=== PATIENT | female | born 1985 | race Caucasian/White ===

== ENCOUNTER 2021-03-17 20:46 | Emergency (ER) | payer OTHER ==
[2021-03-17 22:13] LABS: BASOPHIL 0.3 % (0-2); EOSINOPHIL 2.1 % (0-5); HCT 35.9 % (37.0-47.0); HGB 11.4 g/dl (12.5-16.0); MCH 26.5 pg (25.0-31.0); MCHC 31.8 g/dL (32.0-36.0); MCV 83.3 fL (78.0-100.0); MONOCYTE 5.7 % (0-12); MPV 9.8 fL (6.0-9.5); NEUTROPHIL 65.4 % (41-80); NRBC 0; PLT 315 K/uL (150-400); RBC 4.31 M/uL (4.20-5.40); WBC 12.8 K/uL (4.0-10.5)
[2021-03-17 22:26] LABS: BILIRUBIN - TOTAL 0.2 mg/dL (0.2-1.0); CREATININE 0.79 mg/dL (0.51-0.95); GLOBULIN (CALCULATION) 4.5 g/dL; POTASSIUM 3.7 mmol/L (3.5-5.1); TOTAL PROTEIN 7.5 g/dL (6.4-8.2)
[2021-03-17 22:26] LABS: BILIRUBIN NEGATIVE (NEGATIVE); BLOOD NEGATIVE Ery/uL (NEGATIVE); COLOR YELLOW (YELLOW); GLUCOSE (U) NORMAL (NORMAL); LEUKOCYTES TRACE Leu/uL (NEGATIVE); NITRITE NEGATIVE (NEGATIVE); PROTEIN NEGATIVE (NEGATIVE); SPECIFIC GRAVITY >=1.030 (1.001-1.030); UROBILINOGEN 0.2 mg/dL (0.2-1.0)
[2021-03-17 22:30] LABS: CLARITY SLIGHTLY HAZY (CLEAR)
[2021-03-17 22:32] LABS: LACTIC ACID 0.9 mmol/L (0.4-1.9)
[2021-03-17 22:35] LABS: BACTERIA 1+
[2021-03-18] MEDS ORDERED: NORCO 5-325 TA1 EACH PO (03:26)
[2021-03-18] MEDS ORDERED: BENTYL10 MG PO (03:26)
[2021-03-18] MEDS ORDERED: ONDANSETRON ODT4 MG SL (03:26)
== END 2021-03-18 03:55 | disposition home or self-care (01) ==
LOC: FER 20:46
PROVIDERS: Emergency Medicine Emergency Medical Services
DX: R10.31 Right lower quadrant pain (principal); R10.32 Left lower quadrant pain; E11.9 Type 2 diabetes mellitus without complications; I10 Essential (primary) hypertension; E66.01 Morbid (severe) obesity due to excess calories; Z91.013 Allergy to seafood; Z79.899 Other long term (current) drug therapy; Z79.84 Long term (current) use of oral hypoglycemic drugs
CPT/HCPCS: 36415; 80053; 81001; 82150; 83605; 83690; 85025; J2270; J2405; J7030; Q9967

== ENCOUNTER 2021-11-20 20:44 | Day surgery (SDCO) | payer OTHER ==
[~2021-11-20] VITALS: Ht 170.2 cm; Wt 184.6 kg
[~2021-11-20 20:44] MED LIST: BENTYL10 MG PO; NORCO 5-325 TA1 EACH PO; ONDANSETRON ODT4 MG SL
[2021-11-20 21:23] LABS: BASOPHIL 0.4 % (0-2); EOSINOPHIL 2.2 % (0-5); HCT 36.6 % (37.0-47.0); HGB 11.5 g/dl (12.5-16.0); MCH 26.3 pg (25.0-31.0); MCHC 31.4 g/dL (32.0-36.0); MCV 83.8 fL (78.0-100.0); MONOCYTE 4.6 % (0-12); MPV 9.7 fL (6.0-9.5); NEUTROPHIL 66.2 % (41-80); NRBC 0; PLT 325 K/uL (150-400); RBC 4.37 M/uL (4.20-5.40); RDW 15.7 % (11.5-14.0); WBC 13.7 K/uL (4.0-10.5)
[2021-11-20 22:08] LABS: ALBUMIN 2.8 g/dL (3.4-5.0); BILIRUBIN - TOTAL 0.2 mg/dL (0.2-1.0); BUN/CREAT RATIO (CALC) 17.1 RATIO; CORONAVIRUS 2019 SARS-COV-2 NEGATIVE (NEGATIVE); CREATININE 0.76 mg/dL (0.51-0.95); GLOBULIN (CALCULATION) 4.2 g/dL; INFLUENZA A NAA NEGATIVE (NEGATIVE); POTASSIUM 3.6 mmol/L (3.5-5.1)
--- NOTE | 2021-11-21 01:31 | NUR ---
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 PER PT. PLEASE ADDRESS APPROPRIATELY. THANK YOU.
[2021-11-21] MEDS ORDERED: ASPIRIN EC81 M1 PO (03:21)
[2021-11-21] MEDS ORDERED: FOLIC ACID1 MG PO (03:22)
[2021-11-21] MEDS ORDERED: ATARAX25 MG PO (03:27)
[2021-11-21] MEDS ORDERED: PRINIVIL20 MG PO (03:30)
[2021-11-21] MEDS ORDERED: METFORMIN HCL500 MG PO (03:31)
[2021-11-21] MEDS ORDERED: SINGULAIR10 MG PO (03:32)
[2021-11-21] MEDS ORDERED: ALDACTONE25 MG PO (03:33)
[2021-11-21] MEDS ORDERED: TRAZODONE HCL150 MG PO (03:34)
[2021-11-21] MEDS ORDERED: TOPROL XL 50 MG50 MG PO (03:34)
[2021-11-21] MEDS ORDERED: VIIBRYD40 MG PO (03:36)
[2021-11-21] MEDS ORDERED: VRAYLAR4.5 MG PO (03:36)
[2021-11-21] MEDS ORDERED: XYZAL5 MG PO (03:37)
[2021-11-21 06:59] LABS: HCT 36.4 % (37.0-47.0); HGB 11.6 g/dl (12.5-16.0); MCH 26.7 pg (25.0-31.0); MCHC 31.9 g/dL (32.0-36.0); MCV 83.7 fL (78.0-100.0); MPV 10.3 fL (6.0-9.5); RBC 4.35 M/uL (4.20-5.40); RDW 15.5 % (11.5-14.0); WBC 13.9 K/uL (4.0-10.5)
[2021-11-21 07:26] LABS: ALBUMIN 2.9 g/dL (3.4-5.0); BILIRUBIN - TOTAL 0.1 mg/dL (0.2-1.0); BUN/CREAT RATIO (CALC) 15.9 RATIO; CREATININE 0.69 mg/dL (0.51-0.95); GLOBULIN (CALCULATION) 4.3 g/dL; MAGNESIUM 1.7 mg/dL (1.8-2.4); PHOSPHORUS 2.4 mg/dL (2.6-4.7); POTASSIUM 3.9 mmol/L (3.5-5.1); TOTAL PROTEIN 7.2 g/dL (6.4-8.2)
--- NOTE | 2021-11-21 10:23 | NUR ---
0722 PANIC LAB VALUES FOR LACTIC 2.[address] HENDRICKS NOTIFED NO ORDERS AT THIS TIME.
--- NOTE | 2021-11-21 12:34 | NUR ---
PER DR. HENDRICKS PT IS OBS APPROPRIATE.
--- NOTE | 2021-11-21 17:48 | NUR ---
1745 O2 SAT BEFORE WASLKING 90% ON RA, HR 108. AMBULATED DOWN TO THE HALLWAY TO THE NURSE STATION AND BACK TO THE ROOM. O2 SAT 90% RA AND HR AT THE HIGHEST 127, COMPLIANTS OF SOME INCREASED SHORTNESS OF AIR. RETURNED BACK TO THE ROOM AND RESTED AND HEART RATE DECREASED TO 108, NO INCREASED SHORTNESS OF AIR AND ROM AIR O2 SAT WAS 90-91%. WILL CONTINUE TO MONITOR FOR CHANGES AND DR. HENDRICKS WAS NOTIFIED.
[2021-11-22 06:50] LABS: BASOPHIL 0.1 % (0-2); EOSINOPHIL 0 % (0-5); HCT 36.1 % (37.0-47.0); HGB 11.2 g/dl (12.5-16.0); MCH 26.1 pg (25.0-31.0); MCV 84.1 fL (78.0-100.0); MONOCYTE 4.5 % (0-12); MPV 10.1 fL (6.0-9.5); NRBC 0; PLT 344 K/uL (150-400); RBC 4.29 M/uL (4.20-5.40); WBC 21.4 K/uL (4.0-10.5)
[2021-11-22 07:12] LABS: ALBUMIN 2.8 g/dL (3.4-5.0); ALKALINE PHOSHATASE 79 U/L (46-116); ALT 29 U/L (14-59); AST <5 U/L (15-37); BILIRUBIN - TOTAL 0.2 mg/dL (0.2-1.0); BUN 10 mg/dL (7-18); BUN/CREAT RATIO (CALC) 15.9 RATIO; CHLORIDE 103 mmol/L (98-107); CO2 (BICARBONATE) 24 mmol/L (21-32); CREATININE 0.63 mg/dL (0.51-0.95); GLOBULIN (CALCULATION) 4.3 g/dL; GLUCOSE 155 mg/dL (74-106); POTASSIUM 4.5 mmol/L (3.5-5.1); TOTAL PROTEIN 7.1 g/dL (6.4-8.2)
[2021-11-23 06:32] LABS: BASOPHIL 0.2 % (0-2); EOSINOPHIL 0.2 % (0-5); HCT 35.6 % (37.0-47.0); HGB 11.1 g/dl (12.5-16.0); LYMPHOCYTE 27.3 % (15-48); MCH 26.9 pg (25.0-31.0); MCHC 31.2 g/dL (32.0-36.0); MCV 86.2 fL (78.0-100.0); MONOCYTE 5.3 % (0-12); MPV 9.8 fL (6.0-9.5); NEUTROPHIL 65.8 % (41-80); NRBC 0; PLT 308 K/uL (150-400); RBC 4.13 M/uL (4.20-5.40); RDW 16.3 % (11.5-14.0); WBC 16.7 K/uL (4.0-10.5)
--- NOTE | 2021-11-23 10:48 | NUR ---
11/23 Ms. White identifies as male and prefers to be referred to as Mr. White or [place]. Mr. White lives at home with his spouse. He works at [employer]. The spouse works as a plumber's assistant. Mr. White reports to be having some financial difficulties due to loss of work hours. - Mr. White reports to have a dx of bipolar disease, depression and anxiety. He has a PCP, Slade Bailey, and counseling through [facility], On-line. - Mr. White was provided with a list of financial community resources.
[2021-11-23] MEDS ORDERED: PREDNISONE 20MG20 MG PO (10:53)
[2021-11-23] MEDS ORDERED: TOPROL XL 25MG25 MG PO (10:53)
== END 2021-11-23 12:19 | disposition home or self-care (01) ==
LOC: FER 20:44 → FMS 23:13
PROVIDERS: Allergy & Immunology Allergy; Internal Medicine; Nurse Practitioner; ADMIT Internal Medicine
DX: J44.1 Chronic obstructive pulmonary disease with (acute) exacerbation (principal); I10 Essential (primary) hypertension; F32.A Depression, unspecified; E11.9 Type 2 diabetes mellitus without complications; E66.2 Morbid (severe) obesity with alveolar hypoventilation; Z79.82 Long term (current) use of aspirin; Z79.84 Long term (current) use of oral hypoglycemic drugs; Z91.013 Allergy to seafood; Z90.49 Acquired absence of other specified parts of digestive tract; Z20.822 Contact with and (suspected) exposure to COVID-19
CPT/HCPCS: 36415; 71045; 71275; 80053; 83605; 83735; 83880; 84100; 84145; 84484; 85025; 93005; 94010; 94640; 94762; G0378; J0456; J0696; J1100; J1650; J2060; J2405; J2930; J7050; J7512; Q9967; U0002

== ENCOUNTER 2021-12-20 14:23 | Emergency (ER) | payer OTHER ==
[~2021-12-20 14:23] MED LIST changes: +ALDACTONE25 MG PO; +ASPIRIN EC81 M1 PO; +ATARAX25 MG PO; +FOLIC ACID1 MG PO; +METFORMIN HCL500 MG PO; +PREDNISONE 20MG20 MG PO; +PRINIVIL20 MG PO; +SINGULAIR10 MG PO; +TOPROL XL 25MG25 MG PO; +TOPROL XL 50 MG50 MG PO; +TRAZODONE HCL150 MG PO; +VIIBRYD40 MG PO; +VRAYLAR4.5 MG PO; +XYZAL5 MG PO
[2021-12-20 15:58] LABS: BASOPHIL 0.2 % (0-2); EOSINOPHIL 2.1 % (0-5); HCT 38.1 % (37.0-47.0); HGB 12.1 g/dl (12.5-16.0); LYMPHOCYTE 27.7 % (15-48); MCH 26.9 pg (25.0-31.0); MCHC 31.8 g/dL (32.0-36.0); MCV 84.7 fL (78.0-100.0); MONOCYTE 5.5 % (0-12); MPV 9.9 fL (6.0-9.5); NEUTROPHIL 63.7 % (41-80); NRBC 0; PLT 355 K/uL (150-400); RDW 15.5 % (11.5-14.0); WBC 13.6 K/uL (4.0-10.5)
[2021-12-20 16:12] LABS: BILIRUBIN - TOTAL 0.1 mg/dL (0.2-1.0); BUN/CREAT RATIO (CALC) 13.7 RATIO; CREATININE 0.73 mg/dL (0.51-0.95); GLOBULIN (CALCULATION) 4.5 g/dL; TOTAL PROTEIN 7.5 g/dL (6.4-8.2)
[2021-12-20 17:58] LABS: BILIRUBIN NEGATIVE (NEGATIVE); BLOOD NEGATIVE Ery/uL (NEGATIVE); CLARITY CLEAR (CLEAR); COLOR YELLOW (YELLOW); GLUCOSE (U) NORMAL (NORMAL); LEUKOCYTES NEGATIVE Leu/uL (NEGATIVE); NITRITE NEGATIVE (NEGATIVE); PROTEIN NEGATIVE (NEGATIVE); UROBILINOGEN 0.2 mg/dL (0.2-1.0)
[2021-12-20] MEDS ORDERED: ONDANSETRON ODT4 MG PO (18:29)
== END 2021-12-20 18:47 | disposition home or self-care (01) ==
LOC: FER 14:23
PROVIDERS: Physician Assistant
DX: A08.4 Viral intestinal infection, unspecified (principal); E11.9 Type 2 diabetes mellitus without complications; I10 Essential (primary) hypertension; Z91.013 Allergy to seafood; Z79.84 Long term (current) use of oral hypoglycemic drugs; Z79.899 Other long term (current) drug therapy
CPT/HCPCS: 36415; 80053; 81003; 83690; 85025

== ENCOUNTER 2022-02-07 22:22 | Emergency (ER) | payer OTHER ==
[~2022-02-07 22:22] MED LIST changes: +ONDANSETRON ODT4 MG PO
[2022-02-07 23:32] LABS: BASOPHIL 0.3 % (0-2); EOSINOPHIL 2.6 % (0-5); HCT 38.6 % (37.0-47.0); HGB 12.1 g/dl (12.5-16.0); LYMPHOCYTE 29.2 % (15-48); MCH 26.5 pg (25.0-31.0); MCHC 31.3 g/dL (32.0-36.0); MCV 84.5 fL (78.0-100.0); MONOCYTE 5.2 % (0-12); MPV 10.2 fL (6.0-9.5); NEUTROPHIL 62.3 % (41-80); NRBC 0; PLT 300 K/uL (150-400); RBC 4.57 M/uL (4.20-5.40); RDW 14.6 % (11.5-14.0); WBC 12.7 K/uL (4.0-10.5)
[2022-02-07 23:37] LABS: BILIRUBIN NEGATIVE (NEGATIVE); BLOOD 2+ Ery/uL (NEGATIVE); CLARITY CLEAR (CLEAR); COLOR YELLOW (YELLOW); GLUCOSE (U) NORMAL (NORMAL); LEUKOCYTES NEGATIVE Leu/uL (NEGATIVE); NITRITE POSITIVE (NEGATIVE); PROTEIN NEGATIVE (NEGATIVE); SPECIFIC GRAVITY >=1.030 (1.001-1.030); UROBILINOGEN 0.2 mg/dL (0.2-1.0)
[2022-02-07 23:44] LABS: BACTERIA 1+
[2022-02-07 23:51] LABS: BILIRUBIN - TOTAL 0.2 mg/dL (0.2-1.0); CREATININE 0.75 mg/dL (0.51-0.95); GLOBULIN (CALCULATION) 4.2 g/dL; POTASSIUM 3.7 mmol/L (3.5-5.1); TOTAL PROTEIN 7.2 g/dL (6.4-8.2)
[2022-02-08] MEDS ORDERED: NORCO 5-325 TA1 EACH PO (00:40)
[2022-02-08] MEDS ORDERED: NAPROXEN500 MG PO (00:40)
[2022-02-08] MEDS ORDERED: ONDANSETRON ODT4 MG PO (00:40)
[2022-02-08] MEDS ORDERED: BACTRIM DS TAB1 EACH PO (00:43)
== END 2022-02-08 01:15 | disposition home or self-care (01) ==
LOC: FER 22:22
PROVIDERS: Internal Medicine
DX: N39.0 Urinary tract infection, site not specified (principal); N83.292 Other ovarian cyst, left side; R11.2 Nausea with vomiting, unspecified; E11.9 Type 2 diabetes mellitus without complications; I10 Essential (primary) hypertension; Z79.82 Long term (current) use of aspirin; Z79.84 Long term (current) use of oral hypoglycemic drugs; Z79.899 Other long term (current) drug therapy
CPT/HCPCS: 36415; 80053; 81001; 83690; 84145; 85025; J1170; J1885; J2550

== ENCOUNTER 2022-05-18 15:56 | Emergency (ER) | payer OTHER ==
[~2022-05-18 15:56] MED LIST changes: +BACTRIM DS TAB1 EACH PO; +NAPROXEN500 MG PO
[2022-05-18] MEDS ORDERED: PREDNISONE 20MG20 MG PO (19:55)
[2022-05-18] MEDS ORDERED: PHENERGAN25 M1 PO (19:55)
== END 2022-05-18 20:36 | disposition home or self-care (01) ==
LOC: FER 15:56
DX: U07.1 COVID-19 (principal); I10 Essential (primary) hypertension; E11.9 Type 2 diabetes mellitus without complications; J45.909 Unspecified asthma, uncomplicated; Z91.013 Allergy to seafood
CPT/HCPCS: 96372; 99284; J1100; J1885; Q0169